=== PATIENT | female | born 1940 | race Caucasian/White ===

== ENCOUNTER 2017-12-01 08:55 | Day surgery (SDC) | payer MEDICARE, BC ==
[2017-12-01 09:25] LABS: INR 1.1; PROTHROMBIN TIME (PATIENT) 11.4 SECONDS (9.5-12.1)
--- NOTE | 2017-12-02 11:40 | Operative Note ---
DATE OF SURGERY: 12/01/2017 OPERATION: COLONOSCOPY. PREOPERATIVE DIAGNOSIS: Personal history of colon polyps. POSTOPERATIVE DIAGNOSIS: Normal exam. PROCEDURE: After informed consent was obtained from the patient, she was placed in the left lateral decubitus position in the endoscopy suite, sedated and monitored by the department of anesthesia. Digital rectal exam was unremarkable. A well-lubricated [id number] colonoscope was inserted into the rectum and advanced to the cecum. Preparation quality was good. The cecum, ileocecal valve, appendiceal orifice, ascending colon, transverse colon, descending colon, sigmoid colon, and rectum were free of inflammatory changes, mass lesions, or polyps. Forward and J-turn views of the rectum and anorectum were unremarkable. The endoscope was straightened, the rectal ampulla deflated, and the endoscope was removed. RECOMMENDATIONS: Given the patient's age, comorbidities, and lack of findings, I would suggest she does not need a repeat exam unless symptoms warrant. She should resume her medications but in particular, she needs to follow up for further care of her hypertension which seems to be less than ideally controlled at this time. As always, thank you for allowing me to participate in the healthcare of your patients. CC: Dr. Geena ZIMMER
== END 2017-12-01 12:55 | disposition home or self-care (01) ==
LOC: HOP 08:55
PROVIDERS: ATTEND Internal Medicine Gastroenterology
DX: Z12.11 Encounter for screening for malignant neoplasm of colon (principal)
CPT/HCPCS: 85610

== ENCOUNTER 2017-12-01 12:50 | Observation (INO) | payer MEDICARE, BC ==
--- NOTE | 2017-12-01 13:09 | Emergency Department Record ---
History of Present Illness - General Chief Complaint: Hypertension Stated Complaint: ELEVATED BP Time Seen by Provider: 12/01/17 13:08 Source: Patient Mode of Arrival: Wheelchair Limitations: No limitations - History of Present Illness Initial Comments: The patient is here due to not feeling well after having her Colonoscopy this morning. She had the procedure successfully and then after waking was a little dizzy and wobbly with walking. She then had her blood pressure taken and it was high so she was sent to the ER. Presently the patient states she is feeling well and denies any Cp, SOB, JAZ, or any WALLACE. She does have a hx of HTN and states her normal systolic BP is in the 160's. She did take her Bystolic today. MD Complaint: Dizziness Onset/Timin -: Hour(s) Description: Other History of Same: No Severity: Moderate Improves With: Nothing Worsens With: Nothing - [place] Coma Scale Eye Response: (4) Open spontaneously Motor Response: (6) Obeys commands Verbal Response: (5) Oriented [place] Total: 15 - Related Data Allergies Allergy/AdvReac Type Severity Reaction Status Date / Time hydralazine Allergy Severe difficulty Unverified 08/02/17 17:11 breathing, pressure in brain, weakness extremity acetaminophen [From [place]] Allergy anxiety,shaking,shortness Unverified 16:48 of breath,sweating hydrocodone bitartrate Allergy anxiety,shaking,shortness Unverified 08/02/17 16 :48 [From [place]] of breath,sweating oxaprozin [From Daypro] Allergy shortness Unverified 08/02/17 17:11 of breath, red face, weight mojgan, swelling propranolol HCl Allergy cold feet; Verified 12/01/17 13:22 [From Inderal LA] swelling sulfamethoxazole Allergy rash on Verified 12/01/17 13:22 [From Bactrim] face, skin hot to the touch, swelling trimethoprim [From Bactrim] Allergy rash on Verified 12/01/17 13:22 face, skin hot to the touch, swelling losartan potassium AdvReac Intermediate edema Verified 12/01/17 13:22 [From Cozaar] fenofibrate nanocrystallized AdvReac Mild edema- Verified 12/01/17 13:22 [From Tricor] arms,legs,feet fenofibrate,micronized AdvReac Mild edema- Verified 12/01/17 13:22 [From Tricor] arms,legs,feet acebutolol AdvReac edema Verified 12/01/17 13:22 carvedilol AdvReac swelling;arthritis Verified 12/01/17 13:22 in hands cephalexin monohydrate AdvReac sore joints Verified 12/01/17 13:22 [From Keflex] diltiazem HCl [From Cardizem] AdvReac lower back Verified 12/01/17 13:22 pain doxycycline AdvReac lower back Verified 12/01/17 13:23 pain; stiff in morning, hurt to walk first thing glipizide AdvReac swelling Verified 12/01/17 13:23 of face, mood swings , elevated blood pressure glyburide AdvReac swelling Verified 12/01/17 13:23 irbesartan [From Avapro] AdvReac mood change Verified 12/01/17 13:23 levofloxacin [From Levaquin] AdvReac unsure of Verified 12/01/17 13:23 reaction lisinopril AdvReac continual Verified 12/01/17 13:23 cough lorazepam AdvReac mood Verified 12/01/17 13:23 change-uncomfortable around other people metformin HCl AdvReac diarrhea Verified 12/01/17 13:23 [From Glucophage] metoprolol succinate AdvReac nervousness, Verified 12/01/17 13:23 [From Toprol XL] confusion minocycline HCl AdvReac sore joints Verified 12/01/17 13:23 [From Minocin] propranolol AdvReac unsure of Verified 12/01/17 13:23 reaction sitagliptin phosphate AdvReac sore Verified 12/01/17 13:23 [From Januvia] throat, edema, nervousness Sulfa (Sulfonamide AdvReac sore joints Verified 12/01/17 13:23 Antibiotics) verapamil AdvReac dryness Verified 12/01/17 13:23 Travel Screening - Travel/Exposure Within Last 30 Days Have you traveled within the last 30 days?: No - Travel/Exposure Within Last Year Have you traveled outside the [place] in the last year?: No - Additonal Travel Details Have you been exposed to anyone with a communicable illness?: No - Travel Symptoms Symptom Screening: None Review of Systems Constitutional: Denies: Chills, Fever Eyes: Denies: Eye discharge ENT: Denies: Congestion Respiratory: Denies: Cough, Dyspnea Cardiovascular: Denies: Arrhythmia, Chest pain Past Medical History - SOCIAL HISTORY Smoking Status: Never smoker Alcohol Use: None Drug Use: None - RESPIRATORY Hx Respiratory Disorders: Yes - CARDIOVASCULAR Hx Cardio Disorders: Yes Hx Abnormal EKG: Yes (hx of afib prior to open heart surgery) Hx Hypertension: Yes Hx Irregular Heartbeat: Yes Comment:: had Echo done last week as a check up-Dr. Turner - NEURO Hx Neuro Disorders: No - GI Hx GI Disorders: Yes Hx of Polyps: Yes - Hx Genitourinary Disorders: Yes Hx Bladder Problem: Yes (some incontinence) Comment:: hysterectomy - ENDOCRINE Hx Endocrine Disorders: Yes Hx Diabetes: Yes - MUSCULOSKELETAL Hx Musculoskeletal Disorders: No - PSYCH Hx Psych Problems: Yes Hx Anxiety: Yes (some since ) Comment:: recently lost February 2017 - HEMATOLOGY/ONCOLOGY Hx Hematology/Oncology Disorders: No Family Medical History Any Significant Family History?: No Physical Exam - General General Appearance: Alert, Oriented x3, Cooperative, No acute distress - Head Head exam: Atraumatic, Normocephalic, Normal inspection - Eye Eye exam: Normal appearance, PERRL - Neck Neck exam: Normal inspection, Full ROM. negative: Tenderness - Respiratory Respiratory exam: Normal lung sounds bilaterally. negative: Respiratory distress - Cardiovascular Cardiovascular Exam: Regular rate, Normal rhythm, Normal heart sounds - GI/Abdominal GI/Abdominal exam: Soft, Normal bowel sounds. negative: Tenderness - Extremities Extremities exam: Normal inspection, Full ROM, Normal capillary refill. negative: Tenderness - Neurological Neurological exam: Alert, Normal gait, Oriented X3, Other (Neg Drift and [place].). negative: Abnormal gait, Altered, Motor sensory deficit Course Vital Signs 12/01/17 12:56 Temperature 97.9 F Pulse Rate 53 L Respiratory 18 Rate Blood Pressure 208/76 Pulse Ox 98 - Reevaluation(s) Reevaluation #1: The patient is doing very well at this time. She denies any Cp, SOB, WALLACE or dizziness. Her gait is normal and she is hungry. I did explain to her that it appears that she may have some subtle changes on her EKG. Due to that fact and that her BP is elevated I do feel it is prudent to admit the patient to the hospital here just overnight. The patient agrees with the plan. 12/01/17 15:30 Reevaluation #2: I did discuss the case with Dr. Seay and he does agree with the plan to admit overnight. 12/01/17 15:40 Medical Decision Making - Data Complexity MDM Data: Labs Ordered and/or Reviewed, EKG Ordered and/or Reviewed - Lab Data Result diagrams: 12/01/17 13:50 12/01/17 13:50 - EKG Data -: EKG Interpreted by Me EKG: Abnormal EKG (LVH with repolarization abnormalities.) Disposition Disposition: Admit Clinical Impression: Hypertension Qualifiers: Hypertension type: unspecified Qualified Code(s): I10 - Essential (primary) hypertension Disposition: Still a Patient at [facility] Decision to Admit: Admit from ER Decision to Admit Date: 12/01/17 Decision to Admit Time: 15:40 Accepting Physician: Geena Time Discussed w/Accepting Physician: 15:41 Condition: (2) Stable Forms: Patient Portal Access Time of Disposition: 15:41 Quality - Quality Measures Quality Measures: N/A - Blood Pressure Screening View Details: Yes Does Patient Have Any of the Following: Active Dx of HTN Blood Pressure Classification: Hypertensive Reading Systolic Measurement: 208 Diastolic Measurement: 76 Screening for High Blood Pressure: Patient Exclusion, Hx of HTN [G9744]
[2017-12-01] MEDS ORDERED: 0.9 % SODIUM CHLORIDE 1,000 ML BAG IV ONE (13:13)
[2017-12-01 13:57] LABS: BASO % 0.5 % (0-6); EOS % 2.2 % (0-6); HEMATOCRIT 41.1 % (35.0-47.0); HEMOGLOBIN 13.4 gm/dl (11.6-16.0); LYMPH % 24.8 % (16-45); MEAN CELL VOLUME 83.7 fl (81-97); MEAN CORPUSCULAR HEMOGLOBIN 27.3 pg (27-33); MEAN CORPUSCULAR HGB CONC 32.6 g/dl (32-36); MEAN PLATELET VOLUME 11.5 fl (7.4-10.4); MONO % 11.5 % (0-9); PLATELET COUNT 217 K/uL (130-400); RED BLOOD COUNT 4.91 M/uL (3.80-5.40); RED CELL DISTRIBUTION WIDTH 14.7 % (11.5-14.5); WHITE BLOOD COUNT W/O DIFF 5.5 K/uL (4.2-12.2)
[2017-12-01 14:09] LABS: INR 1.1; PARTIAL THROMBOPLASTIN TIME 28.5 SECONDS (24.5-39.1); PROTHROMBIN TIME (PATIENT) 11.9 SECONDS (9.5-12.1)
[2017-12-01 14:13] LABS: ALBUMIN 3.6 g/dL (4.0-5.0); ALKALINE PHOSPHATASE 52 U/L (35-104); ALT/SGPT 16 U/L (<33); AST/SGOT 17 U/L (10.0-35.0); BLOOD UREA NITROGEN 6 mg/dL (8-23)
[2017-12-01 14:14] LABS: ALB/GLOB RATIO 1.1 (1.1-1.8); CREATININE 0.5 mg/dL (0.5-0.9); EST GLOMERULAR FILTRATION RATE > 60 mL/min; GLUCOSE,RANDOM 181 mg/dL (74-109)
[2017-12-01 14:51] LABS: CREATINE PHOSPHOKINASE 56 U/L (26-192)
[2017-12-01 14:52] LABS: CKMB 3.8 ng/mL (<3.77)
[2017-12-01] MEDS ORDERED: 0.9 % SODIUM CHLORIDE 1000ML 1,000 ML IV PRN (16:50)
[2017-12-01] MEDS ORDERED: LASIX 40 MG PO SCH (16:50)
[2017-12-01] MEDS ORDERED: ZINC OXIDE 28.35 GM TUBE TOP PRN (17:03)
[2017-12-01 17:54] LABS: CKMB 3.5 ng/mL (<3.77)
[2017-12-01] MEDS ORDERED: LORAZEPAM 0.5 MG TABLET PO PRN (17:58)
--- NOTE | 2017-12-01 18:27 | Discharge Note ---
VTE H&P Assessment - Risk for VTE Risk for VTE: No Risk Level: Very Low Risk Assessment Date: 12/01/17 Risk Assessment Time: 18:27 VTE Orders Placed or Will Be Placed: No VTE Reason for No Prophylaxis: Not Indicated Discharge Medications - Discharge Medications Home Medications: Ambulatory Orders Insulin Glargine,Hum.rec.anlog [Lantus Solostar] 20 unit SQ QHS pen.injctr [Last Taken 12/01/17] Insulin Lispro [Humalog Kwikpen U-100] 6 unit SQ TIDAC pen.injctr 08/02/17 [ Last Taken 12/01/17] Warfarin Sodium 5 mg PO QHS tab 08/02/17 [Last Taken 12/01/17] Multivitamin [Daily Multiple Vitamin] 1 each PO DAILY 11/16/17 [Last Taken 12/01] [place]-3 Fatty Acids/Fish Oil [Fish Oil 1,000 mg Capsule] 1 each PO DAILY [Last Taken 12/01/17] Lorazepam [Ativan] 0.5 mg PO BID PRN 12/01/17 [Last Taken Unknown] Nebivolol HCl [Bystolic] 20 mg PO DAILY 12/01/17 [Last Taken 12/01/17] Discharge Note - Date Date of Discharge Note: 12/01/17 Disposition: Home, Self-Care Condition: (2) Stable Instructions: Hypertension (DC) Additional Instructions: follow up with family as scheduled take all home meds the way she took them at home restart coumadin tomorrow Referrals: PITA PATRICIA D.O. [Primary Care Provider] - Forms: Patient Portal Access Activity at Discharge: Increase Activity as Tolerated Diet at Discharge: Low Salt Diet
[2017-12-01] MEDS ORDERED: LIDOCAINE 2% MDV (20MG/ML) 20ML VIAL IV ONE (18:55)
[2017-12-01] MEDS ORDERED: PROPOFOL 10 MG/ML VIAL IV ONE (18:55)
[2017-12-01] MEDS ORDERED: WARFARIN 5 MG TAB PO SCH (22:00)
--- NOTE | 2017-12-02 09:01 | History and Physical Report ---
DATE OF ADMISSION: 12/01/2017 Attending Physician: Florentino Seay DO CHIEF COMPLAINT: Hypertension. HISTORY OF PRESENT ILLNESS: This 77-year-old female was having a colonoscopy and after her colonoscopy, her blood pressure was high. She was brought to the emergency department for evaluation, evaluated by Dr. Wellington and admitted to the hospital for observation, until she stabilized her blood pressure. While in the hospital, her blood pressure came down to 160/70, without any chest pain, difficulty breathing. She has got a tremor which makes it difficult to get a good reading with the auto pneumatic cuffs. The manual cuff is much more accurate. She ate dinner without any problems and was walking around the room without difficulties. Her son is in the room. I examined the patient and felt she could go home. PAST MEDICAL HISTORY: Hypertension, diabetes mellitus type 2, atrial fibrillation, on Coumadin therapy. She has had intermittent atrial fibrillation. She has some sort of valve surgery, and she had atrial fibrillation prior to open heart surgery. It might be some sort of aortic valve surgery that was done. An echocardiogram with Dr. Truong checked her over prior to this endoscopy. 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 MEDICATIONS ON ADMISSION: 1. Humalog 6 units before meals. 2. [place] 3 once a day. 3. Multivitamin once a day. 4. Ativan 0.5 mg b.i.d. 5. Bystolic 20 mg daily. 6. She is also on Lantus 20 units a day. 7. Coumadin 2.5 mg 3 times a day and 5 mg the rest of the time. She should go back on her Coumadin the way she took it prior to admission and colonoscopy. FAMILY PSYCHOSOCIAL HISTORY: Unremarkable. She has never smoked and no alcohol drinking. REVIEW OF SYSTEMS: HEENT: No upper respiratory infectious symptoms, cough, cold, or congestion. CARDIOVASCULAR: No chest pain, palpitations, or arrhythmias. She has hypertension. RESPIRATORY: No shortness of breath, cough, cold, or congestion. GASTROINTESTINAL: No nausea, vomiting, diarrhea, black stools, or bloody stools. GENITOURINARY: No dysuria, hematuria, or frequency or burning on urination. MUSCULOSKELETAL: She has arthritis, but moving all 4 extremities appropriately. NEUROLOGIC: No CVA paralysis or paresthesias. GYNECOLOGIC: No abnormal vaginal bleeding or lumps in her breasts. ENDOCRINE: She has diabetes mellitus type 2. No hypothyroidism. INTEGUMENT: No rash, ulcer, change in moles, no yellow skin. PHYSICAL EXAMINATION: GENERAL: Height is 5 feet 4 inches, weight is 184 pounds. VITAL SIGNS: Temperature 98.1, pulse is 56, blood pressure is 162/71, respiratory rate is 18, pulse OX is 94% on room air. HEENT: Pupils are equal, round, and reactive to light and accomodation. Extraocular muscles intact. Throat is clear. Nose is clear. Tympanic membranes are paredes. NECK: Supple. No jugular venous distention, no hepatojugular reflux, no carotid bruits. Thyroid is smooth. CARDIOVASCULAR: Regular rate and rhythm without murmurs, clicks, rubs, or gallops. RESPIRATORY: Clear to auscultation and percussion. ABDOMEN: Soft, nontender, no hepatosplenomegaly, no masses, no tenderness. Bowel sounds are active, no bruits. EXTREMITIES: No pitting edema, no cyanosis, no clubbing. Full range of motion, peripheral pulses are good. BREASTS: Deferred. RECTAL: Deferred. GYNECOLOGIC: Deferred. NEUROLOGIC: Cranial nerves II through XII intact. No gross defects. Sensation normal, strength normal, deep tendon reflexes equal bilaterally. Babinski's is negative. MENTAL STATUS: Alert and oriented x 3. IMPRESSION: 1. Hypertension. 2. Reactive hypertension secondary to anesthesia for colonoscopy, post colonoscopy today with some dehydration for the prep. PLAN: She got IV fluids. She had the cardiac workup by Dr. Wellington with normal cardiac enzymes and normal EKG, with some T-wave inversion and one in AVF and LVH. Second set of enzymes were normal. At this point, I felt it was safe to discharge the patient. Her blood pressure came down in a reasonable range at 160/71. MTDD
[2017-12-02] MEDS ORDERED: MULTIVITAMIN PO SCH (10:00)
[2017-12-02] MEDS ORDERED: NEBIVOLOL HCL 20 MG PO SCH (10:00)
[2017-12-02] MEDS ORDERED: OMEGA PO SCH (10:00)
[2017-12-02] MEDS ORDERED: FISH OIL PO SCH (10:00)
[2017-12-02] MEDS ORDERED: FATTY ACIDS PO SCH (10:00)
--- NOTE | 2017-12-02 11:31 | Discharge Summary ---
DATE OF ADMISSION: 12/01/2017 DATE OF DISCHARGE: 12/01/2017 Attending physician: Florentino Seay DO DISCHARGE DIAGNOSES: 1. Reactive hypertension from endoscopy and anesthesia. 2. Post endoscopy hypertension. 3. Blepharospasm and tremor for 20 years, making blood pressure readings inaccurate with the automatic machine. 4. Dehydration secondary to endoscopy prep. REASON FOR HOSPITALIZATION: This 77-year-old female was in the endoscopy area having a colonoscopy, and after anesthesia, she had reactive hypertension, with blood pressures running over 200/70. She was brought down to the emergency department for evaluation after the anesthesia department was done assessing her. Dr. Wellington evaluated the patient. I did an EKG which showed no acute changes. She has T-wave inversion in AVL, LVH, no signs of acute EKG changes. Cardiac enzymes in the emergency department at 1345 were negative. Cardiac enzymes at 5:45 were also negative. The patient denies any chest pain, no difficulty breathing, ate dinner without any problems, ambulating around the room. She does have a tremor and a blepharospasm, which has been going on for 20 years, progressively getting worse. She was doing much better, I felt that her blood pressure had come down to 162/71, and she felt that she could go home at this time. I feel like she is medically stable and can go home. THERAPY PROVIDED: She was given IV fluids in the emergency department, and evaluation of multiple vital signs. She was placed on the security manager. HOSPITAL COURSE: She was much improved. Her blood pressures normalized, with the manual correct pressure, blood pressure reading was much more accurate. CONDITION ON DISCHARGE: Stable and improved. DISCHARGE INSTRUCTIONS: She is to follow up with her family doctor as scheduled in 2 to 3 weeks. She says she has an appointment at the beginning of December. She is to take her home medications the way she has been taking them before she came in. She is not taking Lasix. She only takes that p.r.n. She is on Ativan 0.5 mg b.i.d., Humalog 6 units before meals, Lantus 20 mg at h.s. Coumadin has been held. She is to restart her Coumadin the way she has been taking it at home prior to coming in and that is 2.5 mg 3 times a day, the rest is 5 mg a day. Bystolic is 20 mg a day, [place] 3 is once a day. Multivitamins once a day. CC: Dr. Geena Lamas [facility]
[2017-12-02] MEDS ORDERED: INSULIN LISPRO 6 UNIT SQ SCH (18:00)
[2017-12-02] MEDS ORDERED: INSULIN GLARGINE HUM REC ANLOG 20 UNIT SQ SCH (22:00)
== END 2017-12-01 18:56 | disposition home or self-care (01) ==
LOC: ER 12:50 → MEDSURG 16:17
PROVIDERS: ADMIT Emergency Medicine; ATTEND Emergency Medicine
DX: Z12.11 Encounter for screening for malignant neoplasm of colon (principal); Z86.010 Personal history of colon polyps; E11.9 Type 2 diabetes mellitus without complications; Z79.4 Long term (current) use of insulin; I10 Essential (primary) hypertension; Z79.01 Long term (current) use of anticoagulants; I48.91 Unspecified atrial fibrillation; I15.8 Other secondary hypertension; T41.45XA Adverse effect of unspecified anesthetic, initial encounter; Y92.238 Other place in hospital as the place of occurrence of the external cause; E86.0 Dehydration
CPT/HCPCS: 00812; G0105; 80053; 82550; 82553; 84484; 85025; 85610; 85730; 93005; 93010; 99236; 99285; J7030